=== PATIENT | male | born 1955 | race African-American/Black ===

== ENCOUNTER 2024-01-08 13:13 | Emergency (ER) | payer MEDICARE, MEDICAID ==
[~2024-01-08] VITALS: Ht 175.3 cm; Wt 136.0 kg
[~2024-01-08 13:13] MED LIST: NAPROSYN500 MG PO; PENICILLN VK500 MG PO
[2024-01-08 13:55] LABS: BASO% 0.3 % (0-3); EOS% 1.9 % (0-8); HEMATOCRIT 41.9 % (39.0-50.0); HEMOGLOBIN 13.6 g/dl (14.0-18.0); IMMATURE GRANULOCYTES 0.6 % (0.0-5.0); LYMPH% 31.4 % (15-41); MEAN CELL VOLUME 92.1 fL CALC (80.0-100.0); MEAN CORPUSCULAR HGB 29.9 pG CALC (26.0-32.0); MEAN CORPUSCULAR HGB CONC 32.5 g/dL CAL (32.0-36.0); MONO% 7.1 % (2-13); NEUT# 7.23 thou/uL (1.82-7.42); NEUT% 58.7 % (42-76); RED BLOOD COUNT 4.55 mill/uL (4.70-6.10); RED CELL DISTRI WIDTH 14.5 % (11.5-15.5)
[2024-01-08 14:24] LABS: ALBUMIN 4.1 g/dL (3.2-5.0); BILIRUBIN, TOTAL 0.3 mg/dL (0.2-1.3); CREATININE 0.8 mg/dL (0.7-1.3); POTASSIUM 3.6 mmol/l (3.5-5.1); TOTAL PROTEIN 7.6 g/dL (6.3-8.2)
[2024-01-08] MEDS ORDERED: BACTRIM DS1 TAB PO (15:10)
[2024-01-08] MEDS ORDERED: CEPHALEXIN500 M1 PO (15:10)
[2024-01-08 15:20] VITALS: BP 133/76
== END 2024-01-08 15:25 | disposition home or self-care (01) ==
LOC: ED 13:13
PROVIDERS: Family Medicine
DX: S91.012A Laceration without foreign body, left ankle, initial encounter (principal); E11.9 Type 2 diabetes mellitus without complications; F17.210 Nicotine dependence, cigarettes, uncomplicated; X58.XXXA Exposure to other specified factors, initial encounter